=== PATIENT | female | born 1985 | race Caucasian/White ===

== ENCOUNTER 2018-06-28 06:02 | Emergency (ER) | payer OTHER, SELFPAY ==
[2018-06-28 06:39] VITALS: BP 178/95; PULSE 61; RESP 18; TEMP 36.6; O2SAT 100; BMI 34.9
[2018-06-28 06:50] VITALS: BP 130/93; PULSE 74; RESP 16; O2SAT 100
--- NOTE | 2018-06-28 07:14 | ED.EXTPRO ---
HPI - Extremity Problem General Chief complaint: Extremity Problem,Nontraumatic Stated complaint: right index finger red swollen nail is black Time Seen by Provider: 06/28/18 07:06 Source: patient Mode of arrival: ambulatory Limitations: no limitations History of Present Illness HPI Narrative: Patient is a 32-year-old female presents with right index finger pain redness and swelling. She has not had fever or chills she denies any specific injury. he does some numbness and tingling at the tip. MD Complaint: extremity pain and extremity swelling Related Data Previous Rx's Medication Instructions Recorded cephalexin [Keflex] 500 mg PO TID #21 cap 06/28/18 Review of Systems Review of Systems GENERAL: Denies chills,fever HEENT: Denies throat pain RESPIRATORY: Denies dyspnea, cough, wheezing CARDIOVASCULAR: Denies chest pain, palpitations GASTROINTESTINAL: Denies nausea, vomiting MUSCULOSKELETAL: Denies extremity pain, injury SKIN: See HPI NEUROLOGIC: Denies weakness, dizziness, headache, numbness 8 point review of systems is negative except for those stated above and HPI PFSH Medical History Hypothyroid (Acute) Social History Smoking Status: Never smoker Exam Initial Vital Signs Initial Vital Signs: Vital Signs Temperature 97.9 F 06/28/18 06:39 Pulse Rate 61 06/28/18 06:39 Respiratory Rate 18 06/28/18 06:39 Blood Pressure 178/95 H 06/28/18 06:39 Pulse Oximetry 100 06/28/18 06:39 GENERAL: Well-appearing, well-nourished and in no acute distress. CARDIOVASCULAR: peripheral pulses in tact, cap refill <2 sec RESPIRATORY: No respiratory distress, speaks in full sentences without difficulty EXTREMITIES: Normal range of motion, no clubbing or edema. Neurovascularly intact Right hand: right index finger erythematous at tip surrounding nail some numbness at the tip full range of motion at PIP aND DIP NEUROLOGICAL: Cranial nerves II through XII grossly intact. Normal gait and speech. SKIN: right index finger erythema around the pain or the nail. No streaking some swelling no fluctuation no drainage Course Vital Signs - 8 hr 06/28/18 06:39 06/28/18 06:50 Temperature 97.9 F Pulse Rate 61 74 Respiratory Rate 18 16 Blood Pressure 178/95 H Blood Pressure [Left Arm] 130/93 H Pulse Oximetry 100 100 Discharge Plan Departure Patient Disposition: Home Clinical Impression: Paronychia of right index finger Instructions: Paronychia Activity Restrictions/Additional Instructions: *You have been diagnosed with right index finger paronychia *What to do: warm soaks with soap and water, may require drainage if not better in 1-2 days with antibiotic *Continue to take medications as directed Keflex 500 mg 3 times a day for 1 week *Follow up with your primary care provider in 2-3 days *Return to ER if you should have worsening redness, increased pain any new, worsening or concerning symptoms Prescriptions: New cephalexin [Keflex] 500 mg capsule 500 mg PO TID Qty: 21 RF: 0
== END 2018-06-28 07:27 | disposition home or self-care (01) ==
PROVIDERS: Emergency Provider Emergency Medicine
DX: L03.011 Cellulitis of right finger (principal)
CPT/HCPCS: 99282; 99283

== ENCOUNTER 2018-11-26 23:00 | Emergency (ER) | payer OTHER, SELFPAY ==
--- NOTE | 2018-11-26 23:10 | DI.RAD.S_ITS ---
PROCEDURE: XR ELBOW LT MIN 3V INDICATIONS: dove for ball,landed on elbow, felt a pop TECHNIQUE: 3 views of the elbow were acquired. COMPARISON: None. FINDINGS: Bones: No fractures or dislocations. No suspicious bony lesions. Soft tissues: No elbow joint effusion. No suspicious soft tissue calcifications. IMPRESSION: 1. No fracture or dislocation. 2. No joint effusion. Dictated by: Darrin Travis M.D. on 11/27/2018 at 9:30 Approved by: Darrin Travis M.D. on 11/27/2018 at 9:31
[2018-11-26 23:30] VITALS: BP 144/97; PULSE 90; RESP 18; TEMP 36.6; O2SAT 100; BMI 83.5
--- NOTE | 2018-11-26 23:31 | ED_ITS ---
HPI - Extremity Injury (Upper) General Chief Complaint: Extremity Injury, Upper Stated Complaint: LEFT ARM INJURY Time Seen by Provider: 11/26/18 23:21 Source: patient Mode of arrival: ambulatory Limitations: no limitations History of Present Illness HPI narrative: Patient is a 33-year-old female here for evaluation of left arm/elbow injury. She states that she was playing softball and she landed on her arm. She states that she feels like she landed on the back of her arm. It was not on an outstretched hand as far as what she can remember. Has had pain just above her elbow since then. She is able to move her elbow. She states that it hurts more when her elbows in full flexion. No prior injuries. Related Data Previous Rx's Medication Instructions Recorded cephalexin [Keflex] 500 mg PO TID #21 cap 06/28/18 Review of Systems Constitutional Denies fever(s) Cardiovascular Denies chest pain and Denies dyspnea Respiratory Denies dyspnea Gastrointestinal Gastrointestinal: Denies abdominal pain Musculoskeletal Reports myalgias (Left triceps), Reports arthralgias (Left elbow pain) and Denies tingling Integumentary/Breasts Denies rash Neurologic Denies tingling and Denies paresthesias Hematologic/Lymphatic Denies easy bleeding and Denies easy bruising Allergic/Immunologic Denies urticaria [facility] Medical History Hypothyroid (Acute) Social History Smoking Status: Never smoker Social History Smoking Status: Never smoker Exam Initial Vital Signs Initial Vital Signs: Vital Signs Temperature 98 F 11/26/18 23:30 Pulse Rate 90 11/26/18 23:30 Respiratory Rate 18 11/26/18 23:30 Blood Pressure 144/97 H 11/26/18 23:30 Pulse Oximetry 100 11/26/18 23:30 Const General: cooperative, healthy appearing, comfortable, well developed, well groomed and No acute distress Orientation: alert, awake and oriented x3 HENMT Head: normal to inspection and normocephalic Cardio Pulses: radial pulses present on the left Skin Lesions: no lesions Rashes: no rashes Neuro Sensory Exam: no sensory deficits noted Extrem Other: Left shoulder unremarkable. Patient does have tenderness to palpation along the triceps muscle belly. Does have tenderness to palpation along the triceps tendon with what appears to be a defect in this area. She is able to fl ex and extend at her elbow. Patient has some difficulty flexing her triceps. Her left forearm left wrist and left hand unremarkable. Course Orders Ordered: ED Orders 11/26/18 23:10 XR elbow LT min 3V Stat Discontinued Medications Hydrocodone Bitart/Acetaminophen (Vicodin Prepack) 1 bottle MISC SEEINSTR ONE Stop: 11/26/18 23:58 Last Admin: 11/27/18 00:35 Dose: Not Given Hydrocodone Bitart/Acetaminophen (Vicodin Prepack) 1 bottle MISC SEEINSTR ONE Stop: 11/27/18 00:15 Last Admin: 11/27/18 00:20 Dose: 1 bottle Vital Signs - 8 hr 11/26/18 23:30 11/27/18 00:38 Temperature 98 F Pulse Rate 90 66 Respiratory Rate 18 16 Blood Pressure 144/97 H 122/87 Pulse Oximetry 100 98 MDM - Extremity Injury (Upper) Imaging Data Elbow x-ray: Attestation: I personally reviewed and interpreted this imaging study as follows: My impression: No fractures, no dislocations, no acute pathology MDM Narrative Medical decision making narrative: Patient is neurovascularly intact. her injury is on the left side. Her physical exam is somewhat concerning for a triceps tendon disruption. There is no fractures on the x-ray. We did give her sling for her comfort. She was instructed to keep her arm out of the sling as much as possible in order to avoid a frozen shoulder. She was given a copy of her x-ray on a CD show that she can take it to the Orthopedic Department over the [facility]. She is instructed on Thursday to contact the Orthopedic Department there for follow-up. She expressed understanding and agreement with plan. Discharge Plan Departure Patient Disposition: Home Clinical Impression: Left upper arm injury Qualifiers: Encounter type: initial encounter Qualified Code(s): S49.92XA - Unspecified injury of left shoulder and upper arm, initial encounter Discharge Date/Time: 11/27/18 00:35 Interventions: ED Discharge Assessment Last Done: 11/27/18 00:38 Instructions: How to Use a Sling Activity Restrictions/Additional Instructions: The sling is for your comfort. On Thursday contact the orthopedic department on the [facility] and let them know that we have concern that you have a triceps tendon disruption and need follow-up. Take the CD that you were given with your x-rays on it to any appointments. Take the medication as needed. Return to the emergency department for any new or worsening symptoms Prescriptions: No Action cephalexin [Keflex] 500 mg capsule 500 mg PO TID Qty: 21 RF: 0 Stand Alone Forms: Work Release Note
[2018-11-27] MEDS: HYDROCODONE/ACET 5/325 PREPACK 1 BOTTLE MISC (00:20)
[2018-11-27 00:38] VITALS: BP 122/87; PULSE 66; RESP 16; O2SAT 98
== END 2018-11-27 00:35 | disposition home or self-care (01) ==
PROVIDERS: Emergency Provider Emergency Medicine
DX: S49.92XA Unspecified injury of left shoulder and upper arm, initial encounter (principal); Y93.64 Activity, baseball
CPT/HCPCS: 73080; 99282; 99283

== ENCOUNTER → 2019-06-29 06:34 | Outpatient (CLI) | payer OTHER, SELFPAY ==
[2019-06-29 09:01] LABS: Glucose Fasting 81 mg/dL (70-100)
== END ==
PROVIDERS: Visit Provider Nurse Practitioner Obstetrics & Gynecology
DX: O99.212 Obesity complicating pregnancy, second trimester (principal); Z34.02 Encounter for supervision of normal first pregnancy, second trimester; Z13.1 Encounter for screening for diabetes mellitus
CPT/HCPCS: 36415; 82951; 82952

== ENCOUNTER → 2019-07-21 09:59 | Outpatient (CLI) | payer OTHER, SELFPAY ==
--- NOTE | 2019-07-21 | DI.US.S_ITS ---
PROCEDURE: US OB >= 14 WEEKS FETUS INDICATIONS: 20 WEEK ANATOMY SURVEY OUTSIDE/PRIOR DATING DATA: Last menstrual period (LMP): 03/05/19. LMP-based estimated date of delivery ([place]): 12/10/19. First dating scan (date and location): This study, 07/21/19. Estimated date of delivery ([place]) from first dating scan: 12/10/19. TECHNIQUE: Real-time scanning was performed of the fetus, with image documentation and biometric measurements. Endovaginal scanning: Not needed for this study COMPARISON: None. FINDINGS: General: A single living intrauterine gestation is present. Presentation: Vertex. Placenta: Placental position is anterior, without previa. Amniotic fluid index: 16.6 cm, normal range is 5-24 cm. heart rate: 153 beats per minute. Maternal cervical canal: 4.9 cm long. Normal lower limit is 2.5 cm. biometrics: Biparietal diameter: 4.4 cm, 19 weeks 3 days Head circumference: 16.4 cm, 19 weeks 1 day Abdominal circumference: 14.6 cm, 19 weeks 6 days Femur length: 3.0 cm, 19 weeks 1 day Estimated gestational age from initial scan: not applicable. Composite gestational age from present scan: 19 weeks 5 days Estimated weight and percentile: 294 g, 31st percentile Measurement variability for biometric dating: +/- 7 days from 14 weeks to 15 weeks 6 days gestation, +/- 10 days from 16 weeks to 21 weeks 6 days gestation, +/- 2 weeks from 22 weeks to 27 weeks 6 days gestation, +/- 3 weeks for 28 weeks gestation or later. weight reference: 4500 g or EFW >90/95% is considered macrosomia or large for gestational age. EFW <10% is small for gestational age. EFW 5% or less is considered intra-uterine growth restriction. Anatomic survey: Neuro: Ventricles are non-dilated at less than 10 mm. Cisterna magna is normal at 3-11 mm. Cerebellum is normal in size and morphology. Nuchal skin fold: Normal at less than 6 mm between 14-21 weeks gestational age. Face: Nose and lips, facial profile are poorly visualized. Spine: No evidence for spina bifida. Heart: 4-chambered heart is present, with relatively poorly seen ventricular outflow tracts. Diaphragm: Diaphragm is poorly seen. Stomach: Left-sided stomach is present. Kidneys: No hydronephrosis. Normal is less than 5 mm in 2nd trimester, less than 7 mm in 3rd trimester. Cord: 3-vessel cord has orthotopic insertion. Bladder: Normal in size. Extremities: All 4 extremities identified but the left upper and lower extremity is relatively poorly seen. IMPRESSION: 19 week 5 day gestation, with the delivery be projected to be centered on 12/10/19. No anomaly is found but the quality of visualization of a number of the structures as described above is suboptimal and followup completion of the anatomic survey should be attempted in one-2 weeks. Dictated by: Edward Mayorga M.D. on 07/21/2019 at 15:42 Approved by: Edward Mayorga M.D. on 07/21/2019 at 15:46
== END ==
PROVIDERS: Visit Provider Nurse Practitioner Obstetrics & Gynecology
DX: Z36.89 Encounter for other specified antenatal screening (principal); Z3A.19 19 weeks gestation of pregnancy
CPT/HCPCS: 76811

== ENCOUNTER → 2019-07-26 08:00 | Outpatient (CLI) | payer OTHER, SELFPAY ==
--- NOTE | 2019-07-26 | DI.US.S_ITS ---
PROCEDURE: US OB FOLLOW UP INDICATIONS: RE-EVALUATE HEART, FACE OUTSIDE/PRIOR DATING DATA: Last menstrual period (LMP): 03/05/19. LMP-based estimated date of delivery ([place]): 12/10/19. First dating scan (date and location): 07/21/19. Estimated date of delivery ([place]) from first dating scan: 12/10/19. TECHNIQUE: Real-time scanning was performed of the fetus, with image documentation. Endovaginal scanning: Not needed COMPARISON: None. FINDINGS: A single living intrauterine gestation is present. Presentation: Vertex Placenta: Placental position is anterior, without previa. heart rate: 155 beats per minute. Prior anatomic survey was suboptimal. The current study completes the anatomic survey with no anomaly seen. IMPRESSION: Completion of anatomic survey, with reference to the prior comparison ultrasound from 07/21/19 when all anatomic details were not fully visualized. Dictated by: Edward Mayorga M.D. on 07/26/2019 at 15:59 Approved by: Edward Mayorga M.D. on 07/26/2019 at 16:08
== END ==
PROVIDERS: Visit Provider Nurse Practitioner Obstetrics & Gynecology
DX: Z36.2 Encounter for other antenatal screening follow-up (principal); Z3A.20 20 weeks gestation of pregnancy
CPT/HCPCS: 76816

== ENCOUNTER → 2019-09-19 08:14 | Outpatient (CLI) | payer OTHER, SELFPAY ==
[2019-09-19 08:56] LABS: Hematocrit 33.5 % (36-46); Hemoglobin 11.9 g/dL (12.0-16.0); Mean Corpuscular HGB Conc 35.6 % (30-36); Mean Corpuscular Volume 84.3 fL (80-100); Platelet Count 236 X10^3/uL (150-400); Red Blood Cell Count 3.98 X10^6/uL (4.0-5.2); White Blood Cell Count 10.3 X10^3/uL (4.5-11.0)
== END ==
PROVIDERS: Referring Provider Nurse Practitioner Obstetrics & Gynecology; Visit Provider Nurse Practitioner Obstetrics & Gynecology
DX: Z34.03 Encounter for supervision of normal first pregnancy, third trimester (principal); Z3A.28 28 weeks gestation of pregnancy
CPT/HCPCS: 36415; 85027

== ENCOUNTER 2019-09-27 15:19 | Outpatient (CLI) | payer OTHER, SELFPAY ==
--- NOTE | 2019-09-27 15:47 | PM.OBTRLD ---
Visit Information Visit Information Date of evaluation: 09/27/19 Primary OB Provider: Concetta Ramirez On-call OB Provider: Janna Paula Comments/Additional reasons for admission: 33 YO @ [id number] by LMP and early US presents for evaluation of decreased FM. Was feeling a lot of movement until last night. Has tried juice today without change in FM. Vital Signs Vital Signs: BP 117/78, HR 90, T36.3C Temporal PFSH Family History (Updated 09/27/19 @ 15:56 by Concetta Ramirez CNM) Mother Hypothyroid Sister Hypothyroid Social History (Updated 09/27/19 @ 15:58 by Concetta Ramirez CNM) marital status: household members: spouse lives independently: Yes Smoking Status: Never smoker Review of Systems Review of Systems ROS: Yes All systems reviewed with the patient and are negative except as otherwise documented Evaluation Evaluation Baseline heart rate: 140 Variability: Moderate (11-25) monitor accelerations: Present monitor decelerations: Absent Contraction Frequency (minutes): 0 Category of Tracing: I Comments: CE deferred Diagnosis, Plan/Disposition Final Diagnosis (1) Decreased movement: Current Visit: Yes Status: Acute Problem details: Reassurance of normal given Plan/Disposition Plan: Discharge to home with routine precautions OB Disposition: home
== END 2019-09-27 16:01 | disposition home or self-care (01) ==
LOC: LABOR 15:26 → OB 09-28 16:42
PROVIDERS: Referring Provider Nurse Practitioner Obstetrics & Gynecology; Visit Provider Nurse Practitioner Obstetrics & Gynecology
DX: O36.8130 Decreased fetal movements, third trimester, not applicable or unspecified (principal); Z3A.29 29 weeks gestation of pregnancy
CPT/HCPCS: 59025; G0378; G0379

== ENCOUNTER → 2019-11-11 12:27 | Outpatient (ROUT) | payer OTHER, SELFPAY | PROVIDERS: Visit Provider Nurse Practitioner Obstetrics & Gynecology | DX: Z36.85 Encounter for antenatal screening for Streptococcus B (principal) | CPT/HCPCS: 87081 ==

== ENCOUNTER → 2019-11-18 14:57 | Outpatient (ROUT) | payer OTHER, SELFPAY ==
[2019-11-18 15:10] LABS: Hematocrit 33.4 % (36-46); Hemoglobin 11.4 g/dL (12.0-16.0); Mean Corpuscular HGB Conc 34.1 % (30-36); Mean Corpuscular Hemoglobin 28.5 PG (26-34); Mean Corpuscular Volume 83.8 fL (80-100); Platelet Count 262 X10^3/uL (150-400); Red Blood Cell Count 3.98 X10^6/uL (4.0-5.2); Red Cell Distribution Width 13.3 % (11.6-14.8); White Blood Cell Count 8.9 X10^3/uL (4.5-11.0)
[2019-11-18 15:16] LABS: Alanine Aminotransferase 9 IU/L (<35); Albumin 3.5 g/dL (3.5-5.0); Alkaline Phosphatase 152 U/L (38-126); Aspartate Aminotransferase 18 IU/L (14-36); Bilirubin Total 0.5 mg/dL (0.2-1.3); Bilirubin Unconjugated 0.5 mg/dL (0.0-1.1); Estimated Glomerular Filt Rate > 60.0 mL/min (>60); Globulin 3.4 g/dL (1.7-4.1); HEMOLYSIS < 15 (0-50); Total Protein 6.9 g/dL (6.3-8.2)
[2019-11-18 15:46] LABS: Protein (Total) Urine Random 9 mg/dL (0-12); Protein Creatinine Ratio Urine 0.04 GRAM/24H
== END ==
PROVIDERS: Visit Provider Nurse Practitioner Obstetrics & Gynecology
DX: Z34.03 Encounter for supervision of normal first pregnancy, third trimester (principal); Z3A.37 37 weeks gestation of pregnancy; R03.0 Elevated blood-pressure reading, without diagnosis of hypertension
CPT/HCPCS: 80076; 82565; 82570; 84156; 84436; 84443; 85027

== ENCOUNTER 2019-11-21 09:27 | Observation (INO) | payer OTHER, SELFPAY ==
[2019-11-21 10:47] LABS: Add Manual Diff / Slide Review NO; Basophils Absolute Auto 0 /uL (0-100); Basophils Percent Auto 0.4 % (0-2); Eosinophils Absolute Auto 100 /uL (0-450); Eosinophils Percent Auto 1.7 % (2-4); Hemoglobin 10.2 g/dL (12.0-16.0); Lymphocytes Absolute Auto 1400 /uL (1100-4500); Lymphocytes Percent Auto 17.7 % (25-40); Mean Corpuscular Hemoglobin 28.9 PG (26-34); Mean Corpuscular Volume 82.4 fL (80-100); Monocytes Absolute Auto 500 /uL (0-900); Neutrophils Absolute Auto 5800 /uL (1500-7000); Neutrophils Percent Auto 74.2 % (50-75); Platelet Count 232 X10^3/uL (150-400); Red Blood Cell Count 3.52 X10^6/uL (4.0-5.2); Red Cell Distribution Width 13.4 % (11.6-14.8); White Blood Cell Count 7.8 X10^3/uL (4.5-11.0)
[2019-11-21 10:58] LABS: Aspartate Aminotransferase 16 IU/L (14-36); BUN Creatinine Ratio 13.8 (6-22); Blood Urea Nitrogen 8 mg/dL (7-17); Estimated Glomerular Filt Rate > 60.0 mL/min (>60); Uric Acid 5.4 mg/dL (2.5-6.2)
[2019-11-21 11:18] LABS: Creatinine Urine Random 218.6 mg/dL; Protein (Total) Urine Random 10 mg/dL (0-12); Protein Creatinine Ratio Urine 0.04 GRAM/24H
--- NOTE | 2019-11-21 14:34 | PM.OBTRLD ---
Visit Information Visit Information Date of evaluation: 11/21/19 Primary OB Provider: Concetta Ramirez On-call OB Provider: Sheila Madrigal Reason for Evaluation: Yes non-stress test and Yes other Comments/Additional reasons for admission: 34YO @ 37wks2 days here for evaluation after elevated BP in clinic. Routine PN care w/ CNM. Lots of FM. No ctx, VB or LOF. No GONZALEZ, vision changed or RUQ pain. CE in atelzh8fs/50%/-3, posterior, firm. Vital Signs Vital Signs: BP134/89. HR75, T36.8C Temporal PFSH Medical History Hypothyroid (Acute) Family History Mother Hypothyroid Sister Hypothyroid Social History marital status: household members: spouse lives independently: Yes Smoking Status: Never smoker Review of Systems Review of Systems ROS: Yes All systems reviewed with the patient and are negative except as otherwise documented Exam Vital Signs (past 8 hours): Serial BPs: 130/81, 139/82, 134/81, 139/82, 125/77 Uterus Location (Fundal Height): 37 Presentation: vertex Objective Labs Result Diagrams: 11/21/19 10:37 11/21/19 10:37 Labs: Laboratory Results - last 24 hr 11/21/19 11/21/19 11/21/19 10:15 10:37 10:37 WBC 7.8 RBC 3.52 L Hgb 10.2 L Hct 29.0 L MCV 82.4 MCH 28.9 MCHC 35.0 RDW 13.4 Plt Count 232 Neut % (Auto) 74.2 Lymph % (Auto) 17.7 L [place] % (Auto) 6.0 Eos % (Auto) 1.7 L Baso % (Auto) 0.4 Neut # (Auto) 5800 Lymph # (Auto) 1400 [place] # (Auto) 500 Eos # (Auto) 100 Baso # (Auto) 0 BUN 8 Creatinine 0.58 Estimated GFR > 60.0 BUN/Creatinine Ratio 13.8 Uric Acid 5.4 AST 16 U Random Total Protein 10 Urine Creatinine 218.6 Protein/Creatinin Ratio 0.04 Evaluation Evaluation Baseline heart rate: 130 Variability: Moderate (11-25) monitor accelerations: Present monitor decelerations: Absent Contraction Frequency (minutes): 0 Category of Tracing: I Laboratory results: Laboratory Tests 11/21/19 11/21/19 11/21/19 10:15 10:37 10:37 WBC 7.8 RBC 3.52 L Hgb 10.2 L Hct 29.0 L MCV 82.4 MCH 28.9 MCHC 35.0 RDW 13.4 Plt Count 232 Neut % (Auto) 74.2 Lymph % (Auto) 17.7 L [place] % (Auto) 6.0 Eos % (Auto) 1.7 L Baso % (Auto) 0.4 Neut # (Auto) 5800 Lymph # (Auto) 1400 [place] # (Auto) 500 Eos # (Auto) 100 Baso # (Auto) 0 BUN 8 Creatinine 0.58 Estimated GFR > 60.0 BUN/Creatinine Ratio 13.8 Uric Acid 5.4 AST 16 U Random Total Protein 10 Urine Creatinine 218.6 Protein/Creatinin Ratio 0.04 Diagnosis, Plan/Disposition Final Diagnosis (1) Anemia affecting fifth : Current Visit: Yes Status: Acute Plan/Disposition Plan: Discharge to home with routine precautions. F/U in clinic 11/25/19 as previously scheduled. OB Disposition: home
== END 2019-11-21 11:40 | disposition home or self-care (01) ==
PROVIDERS: Admitting Provider Nurse Practitioner Obstetrics & Gynecology; Referring Provider Nurse Practitioner Obstetrics & Gynecology; Visit Provider Nurse Practitioner Obstetrics & Gynecology
DX: O99.013 Anemia complicating pregnancy, third trimester (principal); R03.0 Elevated blood-pressure reading, without diagnosis of hypertension; Z3A.37 37 weeks gestation of pregnancy
CPT/HCPCS: 36415; 59025; 59050; 82570; 84156; 84450; 84550; 85025; G0378; G0379

== ENCOUNTER 2019-11-25 14:27 | Inpatient (IN) | payer OTHER, SELFPAY ==
[2019-11-25 15:09] LABS: Add Manual Diff / Slide Review NO; Basophils Absolute Auto 0 /uL (0-100); Basophils Percent Auto 0.6 % (0-2); Eosinophils Absolute Auto 200 /uL (0-450); Hematocrit 29.7 % (36-46); Hemoglobin 10.3 g/dL (12.0-16.0); Lymphocytes Absolute Auto 1800 /uL (1100-4500); Lymphocytes Percent Auto 21.7 % (25-40); Mean Corpuscular HGB Conc 34.6 % (30-36); Mean Corpuscular Hemoglobin 28.5 PG (26-34); Mean Corpuscular Volume 82.4 fL (80-100); Monocytes Absolute Auto 600 /uL (0-900); Monocytes Percent Auto 6.9 % (3-14); Neutrophils Absolute Auto 5800 /uL (1500-7000); Neutrophils Percent Auto 68.8 % (50-75); Platelet Count 241 X10^3/uL (150-400); Red Blood Cell Count 3.61 X10^6/uL (4.0-5.2); Red Cell Distribution Width 13.1 % (11.6-14.8); White Blood Cell Count 8.4 X10^3/uL (4.5-11.0)
[2019-11-25 15:19] LABS: Aspartate Aminotransferase 17 IU/L (14-36); Blood Urea Nitrogen 11 mg/dL (7-17); Estimated Glomerular Filt Rate > 60.0 mL/min (>60); Uric Acid 5.1 mg/dL (2.5-6.2)
--- NOTE | 2019-11-25 15:36 | PM.OBTRLD ---
Visit Information Visit Information Date of evaluation: 11/25/19 Primary OB Provider: Concetta Ramirez On-call OB Provider: Vianca Ardon Reason for Evaluation: Yes other Comments/Additional reasons for admission: 34YO @ 37wks 6days here for evaluation after elevated BP in clinic. Was seen 11/21/19 for same w/ normal preeclampsia labs and BPs WNL. Routine PN care w/ CNM. Lots of FM. No ctx, VB or LOF. No GONZALEZ, vision changed or RUQ pain. CE in clinic 11/21/19: 1cm/50%/-3, posterior, firm. PFSH Social History marital status: household members: spouse lives independently: Yes Smoking Status: Never smoker Objective Labs Result Diagrams: 11/25/19 14:54 11/25/19 14:54 Labs: Laboratory Results - last 24 hr 11/25/19 11/25/19 14:54 14:54 WBC 8.4 RBC 3.61 L Hgb 10.3 L Hct 29.7 L MCV 82.4 MCH 28.5 MCHC 34.6 RDW 13.1 Plt Count 241 Neut % (Auto) 68.8 Lymph % (Auto) 21.7 L [place] % (Auto) 6.9 Eos % (Auto) 2.0 Baso % (Auto) 0.6 Neut # (Auto) 5800 Lymph # (Auto) 1800 [place] # (Auto) 600 Eos # (Auto) 200 Baso # (Auto) 0 BUN 11 Creatinine 0.61 Estimated GFR > 60.0 BUN/Creatinine Ratio 18.0 Uric Acid 5.1 AST 17 Evaluation Evaluation Laboratory results: Laboratory Tests 11/25/19 11/25/19 14:54 14:54 WBC 8.4 RBC 3.61 L Hgb 10.3 L Hct 29.7 L MCV 82.4 MCH 28.5 MCHC 34.6 RDW 13.1 Plt Count 241 Neut % (Auto) 68.8 Lymph % (Auto) 21.7 L [place] % (Auto) 6.9 Eos % (Auto) 2.0 Baso % (Auto) 0.6 Neut # (Auto) 5800 Lymph # (Auto) 1800 [place] # (Auto) 600 Eos # (Auto) 200 Baso # (Auto) 0 BUN 11 Creatinine 0.61 Estimated GFR > 60.0 BUN/Creatinine Ratio 18.0 Uric Acid 5.1 AST 17
--- NOTE | 2019-11-25 16:24 | PM.OBHP.1 ---
OB HPI Date/Time Date of admission: 11/25/19 Date Patient Seen: 11/25/19 Time Patient Seen: 16:30 History of Present Condition Chief complaint: MATERNITY : 1 Para: 0 Estimated Date of Delivery: 12/10/19 Estimated Gestational Age (weeks): 37.6 Narrative: Maria Antonia Valadez is a 34 year old female @ 37wks 6days here for evaluation after elevated BP in clinic. Was seen 11/21/19 for same w/ normal preeclampsia labs and BPs that trended to normal. IUI . Routine PN care w/ CNM. Lots of FM. No ctx, VB or LOF. No GONZALEZ, vision changed or RUQ pain. CE in clinic 11/21/19: 1cm/50%/-3, posterior, firm. Indications Indication for induction OB: medical complication (GHTN) History of Present care: good care Dating criteria: LMP confirmed by 1st trimester US Ultrasounds: normal mid trimester US Obstetrical complications: gestational hypertension and other (Anemia) Medical complications: other (Hypothyroid) Preadmission Labs Blood type: A (+) positive -: Antibody screen: negative, GBS status: negative, HBsAG: negative, HIV: negative and RPR/VDLR: negative -: Chlamydia screen: not detected and Gonorrhea screen: not detected -: Rubella: immune and Varicella: immune HCT: 33.5 HCAB: negative Cell-free DNA: negative, female Narrative: Vomited during 2hr gtt. Normal 2wk QID BG profiling. Evaluation Evaluation Laboratory results: Laboratory Tests 11/25/19 11/25/19 14:54 14:54 WBC 8.4 RBC 3.61 L Hgb 10.3 L Hct 29.7 L MCV 82.4 MCH 28.5 MCHC 34.6 RDW 13.1 Plt Count 241 Neut % (Auto) 68.8 Lymph % (Auto) 21.7 L [place] % (Auto) 6.9 Eos % (Auto) 2.0 Baso % (Auto) 0.6 Neut # (Auto) 5800 Lymph # (Auto) 1800 [place] # (Auto) 600 Eos # (Auto) 200 Baso # (Auto) 0 BUN 11 Creatinine 0.61 Estimated GFR > 60.0 BUN/Creatinine Ratio 18.0 Uric Acid 5.1 AST 17 PFSH Medical History (Updated 11/25/19 @ 16:37 by Concetta Ramirez CNM) Decreased movement (Inactive) Elevated blood pressure reading without diagnosis of hypertension (Inactive) Hypothyroid (Acute) Surgical History (Updated 11/25/19 @ 16:37 by Concetta Ramirez CNM) History of sleeve gastrectomy (Acute) Family History Mother Hypothyroid Sister Hypothyroid Social History marital status: household members: spouse lives independently: Yes Smoking Status: Never smoker Meds Home Medications and Allergies Home Medications Medication Instructions Recorded Confirmed Type ferrous sulfate 11/25/19 History levothyroxine 11/25/19 History Allergies Allergy/AdvReac Type Severity Reaction Status Date / Time Sulfa (Sulfonamide Allergy Verified 11/25/19 16:38 Antibiotics) Review of Systems Review of Systems ROS: Yes All systems reviewed with the patient and are negative except as otherwise documented Exam Vital Signs (past 8 hours): Serial BPs 138/92, 144/93,137/90, 143/89, 150/94, 144/95 HR 88, RR16/min, T36.1C Temporal Uterus Location (Fundal Height): 37 Presentation: vertex Estimated Weight (lbs): 8 Objective Labs Result Diagrams: 11/25/19 14:54 11/25/19 14:54 Labs: Laboratory Results - last 24 hr 11/25/19 11/25/19 14:54 14:54 WBC 8.4 RBC 3.61 L Hgb 10.3 L Hct 29.7 L MCV 82.4 MCH 28.5 MCHC 34.6 RDW 13.1 Plt Count 241 Neut % (Auto) 68.8 Lymph % (Auto) 21.7 L [place] % (Auto) 6.9 Eos % (Auto) 2.0 Baso % (Auto) 0.6 Neut # (Auto) 5800 Lymph # (Auto) 1800 [place] # (Auto) 600 Eos # (Auto) 200 Baso # (Auto) 0 BUN 11 Creatinine 0.61 Estimated GFR > 60.0 BUN/Creatinine Ratio 18.0 Uric Acid 5.1 AST 17 Assessment and Plan Assessment and Plan Assessment and Plan narrative: A: Term Primipara Gestational HTN Hypothyroid Anemia No indication for GBS prophylaxis Reactive NST P: Counseled on GHTN and recommendation for IOL. IOL consent obtained/signed. Admit, routine orders. Dawson balloon placed digitally, patient tolerated this well. Plan to let that work and encourage sleep overnight. Will start IV, labs and pitocin in am. OB back-up/ notified of patient admission status and POC, as a courtesy. Will reassess in am. Time Spent with Patient Total time spent with greater than 50% in coordination of care (as documented) at patient's floor/unit and/or counseling patient:: Greater than 35 minutes
[2019-11-25 17:45] LABS: Creatinine Urine Random 234.2 mg/dL; Protein (Total) Urine Random 10 mg/dL (0-12); Protein Creatinine Ratio Urine 0.04 GRAM/24H
[2019-11-25 22:25] VITALS: BP 134/73
[2019-11-26] MEDS: CALCIUM CARBONATE 500 MG TAB 1000 MG PO ×2 (00:13→20:43)
[2019-11-26] MEDS: hydrOXYzine pamoate 25 MG CAPSULE 50 MG PO ×2 (00:14→20:43)
[2019-11-26 07:01] LABS: Add Manual Diff / Slide Review NO; Basophils Absolute Auto 0 /uL (0-100); Basophils Percent Auto 0.2 % (0-2); Eosinophils Absolute Auto 200 /uL (0-450); Eosinophils Percent Auto 1.6 % (2-4); Hematocrit 29.1 % (36-46); Hemoglobin 9.9 g/dL (12.0-16.0); Lymphocytes Absolute Auto 1700 /uL (1100-4500); Lymphocytes Percent Auto 16.1 % (25-40); Mean Corpuscular HGB Conc 34.2 % (30-36); Mean Corpuscular Hemoglobin 28.2 PG (26-34); Mean Corpuscular Volume 82.4 fL (80-100); Monocytes Absolute Auto 600 /uL (0-900); Neutrophils Absolute Auto 7800 /uL (1500-7000); Neutrophils Percent Auto 76.1 % (50-75); Platelet Count 230 X10^3/uL (150-400); Red Blood Cell Count 3.53 X10^6/uL (4.0-5.2); Red Cell Distribution Width 13.3 % (11.6-14.8); White Blood Cell Count 10.3 X10^3/uL (4.5-11.0)
--- NOTE | 2019-11-26 07:40 | PM.OBPNLAB ---
Date/Time Date Patient Seen: 11/26/19 Time Patient Seen: 07:15 Pain Control Pain control: tolerating well Comments: Comfortable, slept through the night VS BP 132/75, HR107, T36.7F Temporal Had a single severe range BP of 163/90 that repeated to 134/74 @ 1999 last night Pelvic Exam Dilation (cm): 1 Effacement (%): 50 station: -3 Amniotic membrane status: Intact Contractions Contractions on admission: none Monitor mode: External Pitocin rate (mU/min): 0 Contraction frequency (min): 0 Contraction duration (min): 0 Contraction pattern: Absent Status status: Category l Heart Rate Baseline: 135 Monitor Accelerations: Present Monitor Decelerations: Absent Monitor Variability: Moderate Assessment and Plan Assessment: induction ongoing Plan: begin patient augmentation Comments: Will remove Dawson balloon and begin misoprostil x 3-4 doses. Labor support PRN.
[2019-11-26] MEDS: miSOPROStoL 100 MCG TABLET 50 MCG PO ×3 (08:16→16:25)
[2019-11-26] MEDS: LEVOTHYROXINE 125 MCG TABLET PO (08:47)
--- NOTE | 2019-11-26 14:07 | PM.OBPNLAB ---
Date/Time Date Patient Seen: 11/26/19 Time Patient Seen: 14:00 Pain Control Pain control: tolerating well Comments: Patient sleeping, awoke when I walked in the room. Feeling occasional mild tightening, no discomfort. VS: BP 142/78, HR48, T36.8C Pelvic Exam Dilation (cm): 1 Effacement (%): 50 station: -3 Amniotic membrane status: Intact Comments: CE deferred Contractions Contractions on admission: irregular Monitor mode: External Pitocin rate (mU/min): 0 Contraction frequency (min): 2 Contraction duration (min): 1 Contraction pattern: Irregular Contraction phase: Resting Contraction intensity: Mild Status status: Category l Heart Rate Baseline: 135 Monitor Accelerations: Present Monitor Decelerations: Absent Monitor Variability: Moderate Assessment and Plan Assessment: induction ongoing Plan: continuous present management Comments: Continue misoprostil x4 doses. Labor support PRN. Encouraged continued balanced rest and activity. Will reassess around 8pm and begin pitocin or switch to Cervadil depending on CE. Encouraged continued balanced rest and activity. Will recheck preeclampsia panel Q24 hours.
[2019-11-26 18:36] LABS: Aspartate Aminotransferase 17 IU/L (14-36); BUN Creatinine Ratio 15.2 (6-22); Blood Urea Nitrogen 10 mg/dL (7-17); Estimated Glomerular Filt Rate > 60.0 mL/min (>60)
[2019-11-26 18:39] LABS: Add Manual Diff / Slide Review NO; Basophils Absolute Auto 0 /uL (0-100); Basophils Percent Auto 0.4 % (0-2); Eosinophils Absolute Auto 100 /uL (0-450); Eosinophils Percent Auto 1.3 % (2-4); Hemoglobin 11.1 g/dL (12.0-16.0); Lymphocytes Absolute Auto 1900 /uL (1100-4500); Lymphocytes Percent Auto 16.7 % (25-40); Mean Corpuscular HGB Conc 33.7 % (30-36); Monocytes Absolute Auto 800 /uL (0-900); Monocytes Percent Auto 6.7 % (3-14); Neutrophils Absolute Auto 8500 /uL (1500-7000); Neutrophils Percent Auto 74.9 % (50-75); Platelet Count 262 X10^3/uL (150-400); Red Blood Cell Count 3.97 X10^6/uL (4.0-5.2); Red Cell Distribution Width 13.5 % (11.6-14.8); White Blood Cell Count 11.3 X10^3/uL (4.5-11.0)
--- NOTE | 2019-11-26 19:54 | PM.OBPNLAB ---
Date/Time Date Patient Seen: 11/26/19 Time Patient Seen: 19:50 Pain Control Pain control: tolerating well Comments: Patient remains comfortable with mild cramping after 3 doses of misoprostil. VS: BP 125-142/71-88, HR-86bpm, T36.8C Temporal Pelvic Exam Dilation (cm): 1 Effacement (%): 60 station: -3 Amniotic membrane status: Intact Comments: 1.5cm dilated Contractions Contractions on admission: irregular Monitor mode: External Pitocin rate (mU/min): 0 Contraction frequency (min): 4 Contraction duration (min): 1 Contraction pattern: Irregular Contraction phase: Resting Contraction intensity: Mild Status status: Category l Heart Rate Baseline: 140 Monitor Accelerations: Present Monitor Decelerations: Absent Monitor Variability: Moderate Assessment and Plan Assessment: induction ongoing Comments: Given minimal change after 3 doses of misoprostil, stable BPs, negative 1800 preeclampsia labs and Cat I FHR, will switch to Cervadil overnight and reassess in am. Encourage rest.
[2019-11-26] MEDS: DINOPROSTONE VAG (CERVIDIL) 10 MG VAG (20:01)
--- NOTE | 2019-11-27 04:36 | P.PNOB_ITS ---
Date/Time Date Patient Seen: 11/27/19 Time Patient Seen: 04:00 Pain Control Pain control: other (Tensing with contractions) Comments: Had BM and Cervidil came out immediately prior to exam. VS: BP137/91, HR93, T36.6C Temporal Pelvic Exam Dilation (cm): 2 Effacement (%): 75 station: -3 Amniotic membrane status: Intact Contractions Date/Time contractions began: 9pm Contractions on admission: regular Monitor mode: External Pitocin rate (mU/min): 0 Contraction frequency (min): 3 Contraction duration (min): 1 Contraction pattern: Irregular Contraction phase: Resting Contraction intensity: Mild Status status: Category l Heart Rate Baseline: 140 Monitor Accelerations: Present Monitor Decelerations: Absent Monitor Variability: Moderate Comments: Poor continuity of tracing d/t maternal habitus and frequent movement. RN has been switching between EFM/[place] monitors and Andreea w/ Andreea occasionally tracing MHR Assessment and Plan Assessment: induction ongoing Comments: Counseled on early labor recommendations, breathing and comfort. Expectant management x 4 hours, then reassess. IV Fentanyl PRN pain.
[2019-11-27] MEDS: LEVOTHYROXINE 125 MCG TABLET PO (07:48)
--- NOTE | 2019-11-27 08:18 | PM.OBPNLAB ---
Date/Time Date Patient Seen: 11/27/19 Time Patient Seen: 08:00 Pain Control Pain control: other Comments: Tensing with and occasionally breathing through contractions. VS: BP 132/83, HR102, T36.3C Temporal. Pelvic Exam Dilation (cm): 3 Effacement (%): 75 station: -3 Amniotic membrane status: Leaking Comments: SROM, leaking clear fluid since 3am. Amnisure positive. Contractions Date/Time contractions began: 9pm Contractions on admission: none Monitor mode: External Pitocin rate (mU/min): 0 Contraction frequency (min): 3 Contraction duration (min): 1 Contraction pattern: Regular Contraction phase: Resting Contraction intensity: Moderate Status status: Category l Heart Rate Baseline: 145 Monitor Accelerations: Present Monitor Decelerations: Absent Monitor Variability: Moderate Comments: Poor continuity of tracing continued until RN replaced Andreea @ 0755. FHR now continuously tracing. Assessment and Plan Assessment: other (Early labor, SROM ([id number] without sx of infection)) Plan: continuous present management Comments: Continue expectant management. Counseled on options for pain medication vs epidural. Pt planning IV Fentanyl soon and epidural after that.
--- NOTE | 2019-11-27 09:23 | PM.OBPNLAB ---
Date/Time Date Patient Seen: 11/27/19 Time Patient Seen: 09:20 Pain Control Pain control: tolerating well Comments: VSS Pelvic Exam Dilation (cm): 3 Effacement (%): 75 station: -3 Amniotic membrane status: Leaking Comments: CE deferred as contractions have spaced significantly. Contractions Contractions on admission: none Monitor mode: External Pitocin rate (mU/min): 0 Contraction frequency (min): 5 Contraction duration (min): 1 Contraction pattern: Regular Contraction phase: Resting Contraction intensity: Moderate Status status: Category l Heart Rate Baseline: 145 Monitor Accelerations: Present Monitor Decelerations: Absent Monitor Variability: Moderate Assessment and Plan Assessment: induction ongoing Plan: begin patient augmentation Comments: Counseled patient on recommendation for pitocin augmentation, patient consents. Encouraged continued balanced rest and activity. Epidural when requested. notified of patient progress and plan. Reassess in 4 hours or sooner, PRN.
[2019-11-27] MEDS: OXYTOCIN PREMIX 30 UNIT/500 ML PLAST..BAG IV (09:29)
[2019-11-27] MEDS: LACTATED RINGERS 1,000 ML 100 ML IV ×2 (09:34→13:32)
[2019-11-27] MEDS: FENT 2MCG/ML BUPIV 0.125% EPI 200 MCG/100 ML PLAST..BAG 10 MCG EPIDURAL (13:35)
--- NOTE | 2019-11-27 13:59 | PM.OBPNLAB ---
Date/Time Date Patient Seen: 11/27/19 Time Patient Seen: 14:00 Pain Control Pain control: epidural Comments: VS: BP-133/77, [id number], T36.0C Temporal Pelvic Exam Dilation (cm): 4 Effacement (%): 80 station: -2 Amniotic membrane status: Leaking Contractions Contractions on admission: none Monitor mode: External Pitocin rate (mU/min): 12 Contraction frequency (min): 3 Contraction duration (min): 1 Contraction pattern: Regular Contraction phase: Resting Contraction intensity: Strong/Firm Status status: Category l Heart Rate Baseline: 135 Monitor Accelerations: Present Monitor Decelerations: Late (rare, not recurrent) Monitor Variability: Moderate Assessment and Plan Assessment: active labor and induction ongoing Plan: continuous present management Comments: Continue pitocin titration to adequate ctx pattern. Encourage position changes Q20-30 minutes. Encourage rest. Reassess in 4 hours or sooner, PRN.
[2019-11-27] MEDS: miSOPROStoL 200 MCG TABLET 400 MCG PO (18:26)
--- NOTE | 2019-11-27 18:43 | P.PCNOB_ITS ---
Events: Induced HTN (Gestational hypertension) and Labor Induction Labor & Delivery Delivery date: 11/27/19 Cervical ripening method: other ([place] balloon, misoprostil and Cervidil) Induction method: none Delivery augmentation: pitocin Delivery monitor: external FHT and external uterine Route of delivery: L&D Laceration Description: Vaginal - 2nd Degree Delivery repair: chromic Estimated blood loss (mL): 400 Anesthesia type: Epidural Narrative: Patient c/o suprapubic pain, was checked and found to be C/C/0. She laughed and moved the baby to +1. Patient pushed well with coaching. NSVB of a viable baby girl in OSMIN position. No NC and easy delivery of the shoulders. was placed on maternal abdomen for drying and stimulation. Apgars 8/9. Remaining 30 units of pitocin in 500mL LR was increased to 350mL/hr for AMTSL. After cessation of pulsation, the cord was double clamped by CNM and cut by FOB. Hospital cord blood hold sample was collected. Gentle cord traction and single maternal push led to spontaneous, Schultze delivery of an apparently intact placenta, membranes and 3VC. Fundus massaged firm. Misoprostil 400mcg SL was given for brisk bleeding. Inspection revealed a 2nd degree vaginal laceration that was repaired w/ 3.0 Chromic in the usual fashion, under good epidural anesthesia. Fundus remained firm after repair. QBL 400mL. Both mother and baby stable and skin to skin as I left the room. [place] Baby 1: gender: Female Presentation: vertex position: Left Occiput Transverse Placenta delivery description: Spontaneous cord vessel description: 3 Vessels score (1 min): 8 score (5 min): 9 Plan for aftercare: Routine PP orders. H/H in am.
[2019-11-27] MEDS: IBUPROFEN 600 MG TABLET PO (20:14)
[2019-11-28] MEDS: IBUPROFEN 600 MG TABLET PO ×2 (02:14→09:54)
[2019-11-28] MEDS: LEVOTHYROXINE 125 MCG TABLET PO (06:30)
[2019-11-28 06:55] LABS: Hemoglobin 9.1 g/dL (12.0-16.0)
[2019-11-28] MEDS: PRENATAL VIT,CALC/IRON/FOLIC 1 TABLET 1 TAB PO (09:54)
[2019-11-28] MEDS: DOCUSATE 100 MG CAPSULE PO (09:54)
[2019-11-28 11:54] VITALS: BP 127/92; PULSE 75; RESP 17; TEMP 36.7
--- NOTE | 2019-11-28 12:18 | P.DS_ITS ---
Discharge Providers Provider Date of admission: 11/25/19 14:27 Discharge Date: 11/28/19 Primary care physician: Concetta Ramirez CNM Consults: 11/25/19 16:29 Consult to Anesthesiology Urgent Comment: Consulting Provider: Anesthesiologist Reason for consultation: if requested Has provider been notified: No 11/28/19 18:40 Consult to Real Estate Closing Coordinator Routine Comment: Discharge provider: Concetta Ramirez CNM Summary Discharge Diagnosis (1) Second degree perineal laceration during delivery: Status: Acute Problem Details: Routine discharge teaching and anticipatory guidance. Time Spent with Patient Time attestation: Total time spent providing and/or coordinating discharge se rvices: Objective Labs Result Diagrams: 11/28/19 06:28 11/26/19 18:07 Labs: Laboratory Results - last 24 hr 11/28/19 06:28 Hgb 9.1 L Hct 27.0 L Exam Vital Signs (past 8 hours): - 11/28/19 11:54 Temperature 98.0 F Pulse Rate 75 Respiratory Rate 17 Blood Pressure 127/92 H Other: Fundus firm at U and lochia light, no clots. Discharge Plan Discharge Plan Patient Disposition: Home Discharge orders & Medications Prescriptions: New acetaminophen 325 mg Tablet 650 mg PO Q6HR PRN (Reason: Pain, Mild (1-3)) 14 Days Qty: 60 RF: 2 docusate sodium [DOK] 100 mg Capsule 100 mg PO BID 14 Days Qty: 28 RF: 0 ibuprofen 600 mg Tablet 600 mg PO Q6HR PRN (Reason: Pain, Mild (1-3)) 14 Days Qty: 60 RF: 2 Continued levothyroxine [Synthroid] 125 mcg tablet 125 mcg PO DAILY RF: 0 ferrous sulfate 65 mg tablet 1 tab PO DAILY RF: 0 Follow up/Referrals: Concetta Ramirez CNM [[facility] [employer] [employer]] - (Follow-up 12/05/19 @ 1000 by telehealth Follow-up @ 1045 in clinic) Diet/Activity/Treatments Diet: Diet as Tolerated and Regular Activity: 6 weeks pf pelvic rest Skin/Wound/Dressing Care Report to your healthcare provider any signs of infection, such as:: chills, fever, increased pain, unusual drainage and unusual redness Visit Report/Discharge Packet Instructions: DI for Depression Stand Alone Forms: Discharge: Care
== END 2019-11-28 14:16 | disposition home or self-care (01) | DRG 807 ==
PROVIDERS: Admitting Provider Nurse Practitioner Obstetrics & Gynecology; Referring Provider Nurse Practitioner Obstetrics & Gynecology; Visit Provider Nurse Practitioner Obstetrics & Gynecology
DX: O13.4 Gestational [pregnancy-induced] hypertension without significant proteinuria, complicating childbirth (principal); O60.14X0 Preterm labor third trimester with preterm delivery third trimester, not applicable or unspecified; O70.1 Second degree perineal laceration during delivery; Z37.0 Single live birth; Z3A.37 37 weeks gestation of pregnancy; E03.9 Hypothyroidism, unspecified; D64.9 Anemia, unspecified; O99.02 Anemia complicating childbirth
CPT/HCPCS: 01967; 36415; 59050; 59200; 82570; 84156; 84450; 84550; 85014; 85018; 85025; 86850; 86900; 86901; 87635; G0379; J2590; S0191

== ENCOUNTER → 2019-11-25 16:25 | Outpatient (CLI) | payer OTHER, SELFPAY ==
[2019-11-26 03:14] LABS: COVID19 Sendout Not Detected
== END ==
PROVIDERS: Visit Provider Nurse Practitioner Obstetrics & Gynecology
DX: Z34.90 Encounter for supervision of normal pregnancy, unspecified, unspecified trimester (principal)
CPT/HCPCS: 87635

== ENCOUNTER → 2020-04-14 11:10 | Outpatient (ROUT) | payer OTHER, SELFPAY | PROVIDERS: Visit Provider Nurse Practitioner Obstetrics & Gynecology | DX: E03.9 Hypothyroidism, unspecified (principal) | CPT/HCPCS: 84436; 84443 ==